=== PATIENT | female | born 1960 | race Two or more races ===

== ENCOUNTER 2020-08-28 02:03 | Emergency (ER) | payer MEDICAID ==
[~2020-08-28] VITALS: Ht 154.9 cm; Wt 73.0 kg
[2020-08-28 02:06] VITALS: BP 133/76
--- NOTE | 2020-08-28 02:26 | NUR ---
PT STATES SHE ASKED HER HAIRDRESSER IF THE HAIR DYE HAD "LYE" IN IT BECAUSE SHE IS ALLERGIC. MINIMAL PERIORBITAL EDEMA NOTED. RED HIVES NOTED AT BASE OF HAIRLINE. PT STATES IT'S VERY ITCHY AND MINIMALLY PAINFUL.
== END 2020-08-28 03:07 | disposition home or self-care (01) ==
LOC: ED 02:30
DX: L23.4 Allergic contact dermatitis due to dyes (principal); H10.33 Unspecified acute conjunctivitis, bilateral
CPT/HCPCS: 99283